=== PATIENT | male | born 1980 | race Caucasian/White ===

== ENCOUNTER → 2021-12-27 | Day surgery (SDC) | payer OTHER ==
[~2021-12-27] VITALS: Ht 175.3 cm; Wt 122.5 kg
[~2021-12-27] MED LIST: ASPIRIN EC81 MG PO; COZAAR50 MG PO; HUMALOG JU100 UNIT/1 SC; LEVEMIR FL100 UNIT/1 SC; LIPITOR40 MG PO; LOPRESSOR50 MG PO; PROTONIX 40MG T40 MG PO
[2021-12-27 12:04] LABS: HCT 46.2 % (42.0-52.0); HGB 14.8 g/dl (13.2-18.0); MCH 29.4 pg (25.0-31.0); MCV 91.7 fL (78.0-100.0); MPV 9.1 fL (6.0-9.5); RBC 5.04 M/uL (4.70-6.00); RDW 12.4 % (11.5-14.0); WBC 8.8 K/uL (4.0-10.5)
[2021-12-27 13:17] LABS: BUN/CREAT RATIO (CALC) 17.9 RATIO; CREATININE 0.84 mg/dL (0.67-1.17); POTASSIUM 4.4 mmol/L (3.5-5.1)
== END | disposition home or self-care (01) ==
LOC: FAS 07:00
PROVIDERS: Legal Medicine
DX: E10.69 Type 1 diabetes mellitus with other specified complication (principal); M24.612 Ankylosis, left shoulder; M75.02 Adhesive capsulitis of left shoulder; G89.18 Other acute postprocedural pain; I10 Essential (primary) hypertension; E78.5 Hyperlipidemia, unspecified; Z91.041 Radiographic dye allergy status; Z79.82 Long term (current) use of aspirin; Z79.4 Long term (current) use of insulin; Z79.899 Other long term (current) drug therapy
CPT/HCPCS: 36415; 80048; J1885; J2250; J2704; J2795; J3010; J7120